=== PATIENT | female | born 1965 | race Asian ===

== ENCOUNTER 2018-06-10 11:02 | Emergency (ER) | payer OTHER ==
[2018-06-10] MEDS ORDERED: MECLIZINE 12.5 MG TABLET PO STA (12:14)
--- NOTE | 2018-06-10 12:52 | ED Physician Documentation ---
History of Present Illness - Stated complaint Stated Complaint: Vertigo - Chief complaint Chief Complaint: Neuro - History obtained from History obtained from: Patient, Family () - History of Present Illness Timing: Today (Early AM.) - Additonal information Additional information: The patient is a 53-year-old female who presents with symptoms of vertigo, with spinning sensation that were mild last night, but became worse this morning. She feels like there is "water in my left ear." She has had one episode of vomiting this morning. She denies headache, chest pain, shortness of breath, or abdominal pain. She has a history of vertigo in the past. She has chronic hearing loss in her right ear. Review of Systems Constitutional: denies: Fever Eyes: denies: Irritation Ears: reports: Loss of hearing (Chronic hearing loss right ear.). denies: Drainage/discharge, Tinnitus/ringing Nose: denies: Congestion Throat: denies: Sore throat Cardiac: denies: Chest pain / pressure Respiratory: denies: Dyspnea, Cough GI: reports: Nausea, Vomiting (Once while en route to the hospital.). denies: Abdominal Pain : denies: Dysuria Skin: denies: Rash Musculoskeletal: denies: Neck pain, Back pain, Extremity swelling Neurologic: denies: Focal weakness, Numbness, Headache PD PAST MEDICAL HISTORY - Past Medical History Cardiovascular: Hypertension, High cholesterol Respiratory: None Endocrine/Autoimmune: None GI: None POLICE DISPATCHER: None : None HEENT: Chronic vision loss, Chronic hearing loss Psych: None Musculoskeletal: Osteoarthritis Derm: Eczema - Past Surgical History Past Surgical History: Yes /POLICE DISPATCHER: Other - Present Medications Home Medications: Ambulatory Orders Medication Instructions Recorded Confirmed Aspirin [Aspir 81] 81 mg ORAL DAILY 02/24/15 02/24/15 Simvastatin 20 mg PO DAILY 02/24/15 02/24/15 amLODIPine [Norvasc] 10 mg PO DAILY 02/24/15 02/24/15 Atenolol 25 mg PO 06/10/18 06/10/18 Meclizine HCl [Motion Sickness 25 mg PO Q6HR PRN #20 tablet 06/10/18 Relief] Promethazine [Phenergan] 25 mg PO Q6H PRN #10 tab 06/10/18 - Allergies Allergies/Adverse Reactions: Allergies Allergy/AdvReac Type Severity Reaction Status Date / Time latex Allergy Anaphylaxis Verified 06/10/18 11:14 - Social History Does the pt smoke?: No Smoking Status: Never smoker Does the pt drink ETOH?: Yes Does the pt have substance abuse?: No - Immunizations Immunizations are current?: Yes PD ED PE NORMAL - Vitals Vital signs reviewed: Yes (Initially hypertensive.) - General General: Alert and oriented X 3, Well developed/nourished - HEENT HEENT: Atraumatic, PERRL, EOMI, Pharynx benign, Other (Decreased hearing in the right ear compared to the left. Tympanic membranes are nonerythematous, without fluid detected behind the TMs.) - Neck Neck: Supple, no meningeal sign, No adenopathy - Cardiac Cardiac: RRR, No murmur - Respiratory Respiratory: No respiratory distress, Clear bilaterally - Abdomen Abdomen: Soft, Non tender - Back Back: No CVA TTP - Derm Derm: No rash - Extremities Extremities: No edema, No calf tenderness / cord - Neuro Neuro: Alert and oriented X 3, No motor deficit, No sensory deficit, Other (Rotation of her head from side to side exacerbates her symptoms. No nystagmus was detected.) Results - Vitals Vitals: Oxygen O2 Source Room air - Labs Labs: Laboratory Tests 06/10/18 11:13 POC Whole Bld Glucose 138 H PD MEDICAL DECISION MAKING - ED course Complexity details: re-evaluated patient, considered differential, d/w patient, d/w family ED course: The patient's presentation is most consistent with peripheral vertigo. Her symptoms do not suggest central nervous system etiology for her vertigo. Treatment in the emergency department included administration of meclizine, 25 mg orally. Her symptoms resolved with the above treatment, and she subsequently demonstrated ability to ambulate without recurrent dizziness or nausea. She is being treated with prescriptions for meclizine and for Phenergan. I discussed with her and her the diagnosis, symptomatic treatment and outpatient follow-up, as well as potentially worrisome signs or symptoms that should prompt reevaluation in the emergency department. Departure - Departure Disposition: 01 Home, Self Care Clinical Impression: Vertigo Condition: Stable Instructions: ED Vertigo Unspecified Follow-Up: [facility] [Provider Group] Prescriptions: Meclizine HCl [Motion Sickness Relief] 25 mg PO Q6HR PRN #20 tablet PRN Reason: Dizziness Promethazine [Phenergan] 25 mg PO Q6H PRN #10 tab PRN Reason: Nausea / Vomiting Comments: You can use meclizine as prescribed if needed for recurrent episodes of vertigo. You can use Phenergan as prescribed if needed for nausea. Follow-up with your primary physician within 2 weeks. Call to schedule appointment. Return to the emergency department if you develop increasing dizziness, persistent vomiting, or otherwise worsening symptoms. Discharge Date/Time: 06/10/18 12:58
[2018-06-10 12:57] VITALS: BP 123/66
== END 2018-06-10 12:58 | disposition home or self-care (01) ==
LOC: ED 11:02
DX: R42 Dizziness and giddiness (principal); I10 Essential (primary) hypertension; E78.00 Pure hypercholesterolemia, unspecified; Z79.82 Long term (current) use of aspirin
CPT/HCPCS: 99283; A9270

== ENCOUNTER 2020-12-19 13:45 | Outpatient (CLI) | payer OTHER ==
--- NOTE | 2020-12-26 11:59 | Mammography Report ---
BILATERAL DIGITAL SCREENING MAMMOGRAM 3D/2D: 12/19/2020 CLINICAL: Routine screening. Comparison is made to exams dated: 05/10/2017 mammogram, 04/30/2016 mammogram - [facility], 02/08/2015 mammogram - [facility], 04/25/2013 mammogram, 04/21/2012 mammogram, and 04/02 mammogram - [facility]. There are scattered fibroglandular elements in both mabel asts. No significant masses, calcifications, or other findings are seen in either breast. There has been no significant interval change. IMPRESSION: NEGATIVE There is no mammographic evidence of malignancy. A 1 year screening mammogram is recommended. This exam was interpreted at Station ID: [id number]. NOTE: For mammograms, a report in lay terms will be sent to the patient. Approximately 15% of breast malignancies will not be visualized mammographically. In the management of a palpable breast mass, a negative mammogram must not discourage biopsy of a clinically suspicious lesion. Electronically Signed By: Jett Montoya acr/penrad:12/25/2020 17:01:11 ACR BI-RADS Category 1: Negative 3341F PARENCHYMAL PATTERN: (A) - The breast(s) demonstrate(s) scattered fibroglandular densities. BI-RADS CATEGORY: (1) - 1 RECOMMENDATION: (ANNUAL) - Recommend routine annual screening mammography. 20211220 1 year screening LATERALITY: (B)
== END 2020-12-19 13:46 | disposition home or self-care (01) ==
LOC: DI 13:45
DX: Z12.31 Encounter for screening mammogram for malignant neoplasm of breast (principal)

== ENCOUNTER 2022-01-28 07:27 | Outpatient (CLI) | payer OTHER | END 2022-01-28 07:28 | disposition home or self-care (01) | LOC: DI 07:27 | PROVIDERS: ATTEND Physician Assistant | DX: R60.0 Localized edema (principal); R05.9 Cough, unspecified; R07.9 Chest pain, unspecified | CPT/HCPCS: 93306 ==